=== PATIENT | female | born 1985 | race Caucasian/White ===

== ENCOUNTER 2020-06-12 03:42 | Outpatient (CLI) | payer MEDICAID, SELFPAY ==
[2020-06-12 15:41] LABS: Kit/Specimen SENT
[2020-06-12 16:00] LABS: Abs Immature Grans 0.04 k/cumm (0.0-0.09); Absolute Basophil Count 0.01 k/cumm (0.0-0.2); Absolute Eosinophil Count 0.09 k/cumm (0.0-0.7); Absolute Lymphocyte Count 1.83 k/cumm (1.2-3.4); Absolute Monocyte Count 0.51 k/cumm (0.11-0.7); Absolute Neutrophil Count 5.48 k/cumm (1.2-6.7); Basophils % 0.1; Eosinophils % 1.1; HCT 40.2 % (36.0-46.0); HGB 13.6 g/dL (12.0-15.5); Immature Grans % 0.5 %; Mean Corp. HGB Concentration 33.8 g/dL (32.0-36.0); Mean Corpuscular Hemoglobin 27.6 pg (27.0-33.0); Mean Corpuscular Volume 81.7 fL (80-95); Mean Platelet Volume 10.5 fL (8.0-11.0); Monocytes % 6.4; Neutrophils % 68.9; Platelet Count 275 x1000/uL (130-400); RBC 4.92 m/cumm (4.00-5.20); RBC Distribution Width 14.2 % (11.7-14.6); White Blood Cell Count 7.96 k/cumm (4.4-10.8)
[2020-06-12 16:02] LABS: Glucose,1 Hr (Glucola) 127 mg/dL (80-140)
[2020-06-12 16:33] LABS: TSH (W/Ref FT4) 1.29 uIU/mL (0.36-3.74)
[2020-06-13 09:49] LABS: Hepatitis B Surface Ag Negative (Negative)
[2020-06-13 10:23] LABS: HIV-1/2 Ag & Ab Screen Negative (Negative)
[2020-06-13 10:27] LABS: Hepatitis C Ab w Rflx HCV PCR Negative (Negative)
[2020-06-13 10:43] LABS: Rubella IgG Ab (UVM) Positive (See Note); Varicella IgG Antibody Positive (See Note)
[2020-06-14 10:14] LABS: Syphilis Total Ab w/Reflex Nonreactive (Nonreactive)
[2020-06-18 17:41] LABS: Result Summary NEGATIVE; Specimen WB Whole Blood
== END 2020-06-12 04:02 ==
PROVIDERS: Advanced Practice Midwife; Visit Provider Advanced Practice Midwife
DX: Z34.91 Encounter for supervision of normal pregnancy, unspecified, first trimester
CPT/HCPCS: 36415; 82950; 86787; 86803; 86850; 86900; 86901; 87340; 87389; 81220; 84443; 85025; 86762; 86780

== ENCOUNTER 2020-06-12 16:33 | Outpatient (REF) | payer MEDICAID, SELFPAY ==
[2020-06-12 19:58] LABS: *AMPHETAMINES SCREEN URINE Negative (Negative); *BARBITURATES SCREEN URINE Negative (Negative); *BENZODIAZEPINES SCREEN URINE Negative (Negative); Cannabinoids THC Negative (Negative); Cocaine Screen,Urine Negative (Negative); METHADONE URINE SCREEN Negative (Negative); OPIATES URINE SCREEN Negative (Negative)
[2020-06-12 20:21] LABS: Tricyclic Antidepressants Negative (Negative)
[2020-06-14 14:34] LABS: Chlamydia Result Negative (Negative); GC Result Negative (Negative)
[2020-06-19 14:16] LABS: Buprenorphine Negative; Norbuprenorphine Negative
== END 2020-06-12 16:53 ==
LOC: LBN 16:33
PROVIDERS: Visit Provider Advanced Practice Midwife
DX: Z34.91 Encounter for supervision of normal pregnancy, unspecified, first trimester; N89.8 Other specified noninflammatory disorders of vagina
CPT/HCPCS: 80307; 87491; 87591; 87086; 87480; 87510; 87660

== ENCOUNTER 2020-08-07 01:09 | Outpatient (CLI) | payer MEDICAID, SELFPAY ==
[2020-08-16 10:59] LABS: AFP 59.2 ng/mL; Cigarette smoking status non-Smoker; IVF Pregnancy No; Insulin dependent diabetes No; Maternal Weight 185 lbs; Number of Fetuses 1; Prev Pregnancy w/NTD No
[2020-08-16 11:17] LABS: Results Summary Normal risk
[2020-08-16 11:18] LABS: Calculated age at EDD 36 years; RECOMMENDED FOLLOW UP None.
[2020-08-16 11:19] LABS: GA used in risk estimate Dates estimate; Initial or repeat testing Initial testing
== END 2020-08-07 01:29 ==
PROVIDERS: Visit Provider Advanced Practice Midwife
DX: O09.522 Supervision of elderly multigravida, second trimester (principal)
CPT/HCPCS: 36415; 82105

== ENCOUNTER 2020-10-09 01:32 | Outpatient (CLI) | payer MEDICAID, SELFPAY ==
[2020-10-09 09:39] LABS: HCT 37.2 % (36.0-46.0); HGB 12.2 g/dL (11.2-15.7); MCH 27.9 pg (27.0-33.0); MCHC 32.8 % (32.0-36.0); MCV 84.9 fL (80-95); MPV 10.5 fL (8.0-11.0); Platelet Count 228 10^3/uL (130-400); RBC 4.38 10^6/uL (3.93-5.22); RDW 14.1 % (11.7-14.6); RDW-SD 43.7 fL; WBC 10.74 10^3/uL (4.4-10.8)
[2020-10-09 09:52] LABS: Glucose,1 Hr (Glucola) 101 mg/dL (80-140)
== END 2020-10-09 01:52 ==
PROVIDERS: Advanced Practice Midwife; Visit Provider Advanced Practice Midwife
DX: Z34.93 Encounter for supervision of normal pregnancy, unspecified, third trimester (principal)
CPT/HCPCS: 36415; 82950; 85027

== ENCOUNTER 2020-11-06 00:24 | Outpatient (CLI) | payer MEDICAID, SELFPAY ==
--- NOTE | 2020-11-06 07:30 | DI.US_ITS ---
EXAM: US OB KANWAL WEIGHT CLINICAL HISTORY: MATERNAL HYPERTENSION,ADVANCED MATERNAL AGE,O13.9. TECHNIQUE: Transabdominal obstetrical ultrasound performed. COMPARISON: No exams were available for comparison FINDINGS: Transabdominal obstetrical ultrasound performed. FINDINGS: Number of fetuses: One. position: Transverse. Head to the left. Placental location: Posterior and fundal. No evidence of previa. The bladder and kidneys were evaluated and are unremarkable. BIOMETRIC DATA: EFW: 2153 grms 62% Composite Age: 33 weeks 2 days EDC: 12/23/2020 Heart Rate: 135BPM Amniotic fluid index: 27.7 cm. Visually, amount of fluid appears within normal limits. IMPRESSION: 1. Single live intrauterine gestation as above. 2. Estimated weight is 2153gms. 3. Amniotic fluid index is 27.7 cm. DATA REPOSITORY:
== END 2020-11-06 00:44 ==
PROVIDERS: PCP Advanced Practice Midwife; Visit Provider Advanced Practice Midwife
DX: O13.3 Gestational [pregnancy-induced] hypertension without significant proteinuria, third trimester (principal)
CPT/HCPCS: 76816

== ENCOUNTER 2020-11-20 01:36 | Outpatient (CLI) | payer MEDICAID, SELFPAY ==
--- NOTE | 2020-11-20 07:15 | DI.US_ITS ---
EXAM: US OB KANWAL WEIGHT CLINICAL HISTORY: polyhydramnios,O40.9XX0. TECHNIQUE: Transabdominal obstetrical ultrasound performed. COMPARISON: US US OB KANWAL WEIGHT from 11/06/2020 FINDINGS:: Number of fetuses: One. position: Vertex. Placental location: Posterior. No evidence of previa. Cervix: Intact. 5.9 cm in length. BIOMETRIC DATA: BPD: 86mm = 34+4 weeks HC: 321mm = 36+ 1 weeks AC: 305mm = 34+3 weeks FL: 66 mm = 33+ 6 weeks EFW: 2434 Gms = 42 % Composite Age: 30 4+5 EDC: 27 December 2020 Heart Rate: 162 BPM Amniotic fluid index: 27.4 cm. Polyhydramnios not changed from the previous exam. There is mild prominence of the bilateral renal pelves. The urinary bladder is mildly d istended. IMPRESSION: size and weight are within the expected range. Mild bilateral prominence of the renal pelves,, likely within normal limits. Polyhydramnios, unchanged. DATA REPOSITORY:
== END 2020-11-20 01:56 ==
PROVIDERS: PCP Advanced Practice Midwife; Visit Provider Advanced Practice Midwife
DX: O40.3XX0 Polyhydramnios, third trimester, not applicable or unspecified (principal)
CPT/HCPCS: 76816

== ENCOUNTER 2020-11-20 07:48 | Outpatient (CLI) | payer MEDICAID, SELFPAY ==
[2020-11-20 10:33] VITALS: BP 93/52; PULSE 88; TEMP 37.1
[2020-11-20 11:37] VITALS: BP 93/52; PULSE 88
== END 2020-11-20 12:03 ==
LOC: BCD 07:51 → OBS 10:32
PROVIDERS: PCP Advanced Practice Midwife; Visit Provider Advanced Practice Midwife
DX: O40.3XX9 Polyhydramnios, third trimester, other fetus (principal); Z3A.34 34 weeks gestation of pregnancy
CPT/HCPCS: 59025

== ENCOUNTER 2020-11-23 11:29 | Outpatient (CLI) | payer MEDICAID, SELFPAY ==
[2020-11-23 11:53] VITALS: BP 119/60; PULSE 93; TEMP 36.9
--- NOTE | 2020-11-28 09:41 | W.OBNST ---
Date of service: 11/23/20 Time of Service: 18:00 NST Evaluation Reason for NST Reasons for Nonstress Test: POLYHYDRAMNIOS Gestational Age Gestational Age in Weeks and Days: 35 Weeks and 4Days Test and Monitor Explained Test/Monitor Explained: Test Explained, Monitor Explained and Patient Verbalized Understanding Vital Signs Blood Pressure: 119/60 Pulse: 93 Temperature: 98.4 F NST Information Date on Monitor: 11/23/20 Time on Monitor: 11:16 Date off Monitor: 11/23/20 Time off Monitor: 11:58 Total Time on Monitor: 42 NST Interventions: PO Hydration NST Evaluation Patient States Movement: Present FHR Baseline: 140 Variability: Moderate 6-25 bpm Accelerations: 15x15 Decelerations: None NST Results: Reactive Note NST Note Note: NST for polyhydramnios. Reactive NST NST Reviewed and Verified by: Kirstin Gale
[2020-11-28 09:42] VITALS: BP 119/60; PULSE 93; TEMP 36.9
== END 2020-11-23 12:08 | disposition home or self-care (01) ==
LOC: BCD 11:30 → OBS 11:50
PROVIDERS: PCP Advanced Practice Midwife; Visit Provider Advanced Practice Midwife
DX: O40.3XX0 Polyhydramnios, third trimester, not applicable or unspecified (principal); Z3A.35 35 weeks gestation of pregnancy
CPT/HCPCS: 59025

== ENCOUNTER 2020-11-27 08:10 | Outpatient (CLI) | payer MEDICAID, SELFPAY ==
[2020-11-27 13:46] VITALS: BP 137/66; PULSE 107; TEMP 37
[2020-11-27 13:48] VITALS: BP 137/66; PULSE 107
--- NOTE | 2020-11-27 14:18 | W.OBNST ---
Date of service: 11/27/20 Time of Service: 14:18 NST Evaluation Reason for NST Reasons for Nonstress Test: POLYHYDRAMNIOS Gestational Age Gestational Age in Weeks and Days: 35 Weeks and 4Days Test and Monitor Explained Test/Monitor Explained: Test Explained, Monitor Explained and Patient Verbalized Understanding Vital Signs Blood Pressure: 137/66 Pulse: 107 Temperature: 98.6 F NST Information Date on Monitor: 11/27/20 Time on Monitor: 13:47 Date off Monitor: 11/27/20 Time off Monitor: 14:16 Total Time on Monitor: 29 NST Interventions: PO Hydration NST Evaluation Patient States Movement: Present FHR Baseline: 145 Variability: Moderate 6-25 bpm Accelerations: 15x15 Decelerations: None NST Results: Reactive Note NST Note Note: NST today for polyhydramnios. NST 2 x weekly have been scheduled with visit 12/03/19 NST Reviewed and Verified by: Kirstin Gale
[2020-11-27 14:19] VITALS: BP 137/66; PULSE 107; TEMP 37
[2020-12-03 11:02] VITALS: BP 117/78; PULSE 93
== END 2020-11-27 14:20 | disposition home or self-care (01) ==
LOC: BCD 08:21 → OBS 13:41
PROVIDERS: PCP Advanced Practice Midwife; Visit Provider Advanced Practice Midwife
DX: O40.3XX0 Polyhydramnios, third trimester, not applicable or unspecified (principal); Z3A.35 35 weeks gestation of pregnancy
CPT/HCPCS: 59025

== ENCOUNTER 2020-11-30 07:02 | Outpatient (CLI) | payer MEDICAID, SELFPAY ==
[2020-11-30 10:45] VITALS: BP 114/82; PULSE 91; TEMP 36.9
[2020-11-30 11:04] VITALS: BP 114/82; PULSE 91
--- NOTE | 2020-11-30 11:32 | W.OBNST ---
Date of service: 11/30/20 Time of Service: 11:32 NST Evaluation Reason for NST Reasons for Nonstress Test: POLYHYDRAMNIOS Gestational Age Gestational Age in Weeks and Days: 36 Weeks and 0Days Test and Monitor Explained Test/Monitor Explained: Test Explained, Monitor Explained and Patient Verbalized Understanding Vital Signs Blood Pressure: 114/82 Pulse: 91 Temperature: 98.4 F NST Information Date on Monitor: 11/30/20 Time on Monitor: 10:48 Date off Monitor: 11/30/20 Time off Monitor: 11:24 Total Time on Monitor: 36 NST Interventions: PO Hydration NST Evaluation Patient States Movement: Present FHR Baseline: 150 Variability: Moderate 6-25 bpm Accelerations: 15x15 Decelerations: None NST Results: Reactive Note NST Note Note: NST for polyhydramnios. RTO in 3 days for visit and NST NST Reviewed and Verified by: Kirstin Gale
[2020-11-30 11:33] VITALS: BP 114/82; PULSE 91; TEMP 36.9
== END 2020-11-30 11:26 | disposition home or self-care (01) ==
LOC: BCD 07:11 → OBS 10:43
PROVIDERS: PCP Family Medicine; Visit Provider Advanced Practice Midwife
DX: O40.3XX0 Polyhydramnios, third trimester, not applicable or unspecified (principal); Z3A.36 36 weeks gestation of pregnancy
CPT/HCPCS: 59025

== ENCOUNTER 2020-12-03 01:29 | Outpatient (CLI) | payer MEDICAID, SELFPAY ==
--- NOTE | 2020-12-03 07:45 | DI.US_ITS ---
EXAM: US OB KANWAL WEIGHT CLINICAL HISTORY: polyhydramnios,O40.9xx0 to [facility] after. TECHNIQUE: Transabdominal obstetrical ultrasound was performed. COMPARISON: US US OB KANWAL WEIGHT from 11/20/2020 FINDINGS: There is a single viable intrauterine gestation with cardiac activity identified-149 bpm The fetus is presently in cephalic position . Amniotic fluid: There is a slightly increased amount of amniotic fluid with an KANWAL of 24.5cm. Placental location: The placenta is fundal-right, grade 2,with no evidence of placenta previa. Dating parameters place this at approximately 36 weeks and 3 days gestational age, implying ELIO of December 28, 2020. BPD measures 36 weeks and 3 days HC measures 36 weeks and 1 day AC measures 36 weeks and 6 days FL measures 36 weeks 0 days Estimated weight is 2948 gm-6 pounds 8 ounces Fetus is at the 89th percentile on the Hadlock scale. IMPRESSION:: Viable 3rd trimester gestation as above. Presently in cephalic position. Polyhydramnios noted (KANWAL = 24.5 cm) DATA REPOSITORY:
== END 2020-12-03 01:49 ==
PROVIDERS: PCP Family Medicine; Visit Provider Advanced Practice Midwife
DX: O40.3XX0 Polyhydramnios, third trimester, not applicable or unspecified (principal); Z3A.36 36 weeks gestation of pregnancy
CPT/HCPCS: 76816

== ENCOUNTER 2020-12-03 07:02 | Outpatient (CLI) | payer MEDICAID, SELFPAY ==
[2020-12-03 10:43] VITALS: BP 117/78; PULSE 93; TEMP 37
--- NOTE | 2020-12-03 11:25 | PDOC.NST_ITS ---
Date of service: 12/03/20 Time of Service: 11:25 NST Evaluation Reason for NST Reasons for Nonstress Test: POLYHYDRAMNIOS Gestational Age Gestational Age in Weeks and Days: 36 Weeks and 3Days Test and Monitor Explained Test/Monitor Explained: Test Explained, Monitor Explained and Patient Verbalized Understanding Vital Signs Blood Pressure: 117/78 Pulse: 93 Temperature: 98.6 F NST Information Date on Monitor: 12/03/20 Time on Monitor: 10:47 Date off Monitor: 12/03/20 Time off Monitor: 11:07 Total Time on Monitor: 20 NST Interventions: PO Hydration NST Evaluation Patient States Movement: Present Variability: Moderate 6-25 bpm Accelerations: 15x15 Decelerations: None NST Results: Reactive Note NST Note Note: to [facility] for 36 wk check up, labs, and review ultrasound results from the DI NST Reviewed and Verified by: Stefanie Tovar
[2020-12-03 11:26] VITALS: BP 117/78; PULSE 93; TEMP 37
== END 2020-12-03 11:09 | disposition home or self-care (01) ==
LOC: BCD 07:23 → OBS 10:09
PROVIDERS: PCP Family Medicine; Visit Provider Advanced Practice Midwife
DX: O40.3XX0 Polyhydramnios, third trimester, not applicable or unspecified (principal); Z3A.36 36 weeks gestation of pregnancy
CPT/HCPCS: 59025

== ENCOUNTER 2020-12-03 18:20 | Outpatient (REF) | payer MEDICAID, SELFPAY ==
[2020-12-03 17:31] LABS: *AMPHETAMINES SCREEN URINE Negative (Negative); *BARBITURATES SCREEN URINE Negative (Negative); *BENZODIAZEPINES SCREEN URINE Negative (Negative); Cannabinoids THC Negative (Negative); Cocaine Screen,Urine Negative (Negative); METHADONE URINE SCREEN Negative (Negative); OPIATES URINE SCREEN Negative (Negative)
[2020-12-03 17:32] LABS: Tricyclic Antidepressants Negative (Negative)
[2020-12-11 11:59] LABS: Buprenorphine Negative; Norbuprenorphine Negative
== END 2020-12-03 18:40 ==
LOC: LBN 18:20
PROVIDERS: PCP Family Medicine; Visit Provider Advanced Practice Midwife
DX: Z34.93 Encounter for supervision of normal pregnancy, unspecified, third trimester (principal); Z3A.36 36 weeks gestation of pregnancy
CPT/HCPCS: 80307; 87081

== ENCOUNTER 2020-12-07 07:59 | Outpatient (CLI) | payer MEDICAID, SELFPAY ==
[2020-12-07 10:53] VITALS: BP 136/71; PULSE 90; TEMP 37.2
[2020-12-07 11:12] VITALS: BP 136/71; PULSE 90
--- NOTE | 2020-12-07 13:35 | W.OBNST ---
Date of service: 12/07/20 Time of Service: 12:35 NST Evaluation Reason for NST Reasons for Nonstress Test: POLYHYDRAMNIOS Gestational Age Gestational Age in Weeks and Days: 37 Weeks and 0Days Vital Signs Blood Pressure: 136/71 Pulse: 90 Temperature: 99.0 F NST Information Date on Monitor: 12/07/20 Time on Monitor: 10:57 Date off Monitor: 12/07/20 Time off Monitor: 11:30 Total Time on Monitor: 33 NST Interventions: PO Hydration NST Evaluation Patient States Movement: Present FHR Baseline: 150 Variability: Moderate 6-25 bpm Accelerations: 15x15 Decelerations: None NST Results: Reactive Note NST Note NST Reviewed and Verified by: Stefanie Tovar
[2020-12-07 13:36] VITALS: BP 136/71; PULSE 90; TEMP 37.2
== END 2020-12-07 11:31 | disposition home or self-care (01) ==
LOC: BCD 08:03 → NUR 10:49 → OBS 11:10
PROVIDERS: PCP Family Medicine; Visit Provider Advanced Practice Midwife
DX: O40.3XX0 Polyhydramnios, third trimester, not applicable or unspecified (principal); Z3A.37 37 weeks gestation of pregnancy
CPT/HCPCS: 59025

== ENCOUNTER 2020-12-11 07:11 | Outpatient (CLI) | payer MEDICAID, SELFPAY ==
[2020-12-11 09:21] VITALS: BP 111/68; PULSE 105; RESP 16; TEMP 36.9
[2020-12-11 09:22] VITALS: BP 111/68; PULSE 105; TEMP 36.9
[2020-12-11 09:49] VITALS: BP 111/68; PULSE 105; TEMP 36.9
--- NOTE | 2020-12-11 09:49 | W.OBNST ---
Date of service: 12/11/20 Time of Service: 09:49 NST Evaluation Reason for NST Reasons for Nonstress Test: POLYHYDRAMNIOS Gestational Age Gestational Age in Weeks and Days: 37 Weeks and 4Days Test and Monitor Explained Test/Monitor Explained: Patient Verbalized Understanding Vital Signs Blood Pressure: 111/68 Pulse: 105 Temperature: 98.4 F NST Information Date on Monitor: 12/11/20 Time on Monitor: 09:20 Date off Monitor: 12/11/20 Time off Monitor: 09:40 Total Time on Monitor: 20 NST Interventions: PO Hydration Contraction Frequency: 0 NST Evaluation Patient States Movement: Present FHR Baseline: 150 Variability: Moderate 6-25 bpm Accelerations: 15x15 Decelerations: None NST Results: Reactive Note NST Note Note: Reactive NST for polyhydramnios NST Reviewed and Verified by: Kirstin Gale
== END 2020-12-11 10:01 | disposition home or self-care (01) ==
LOC: BCD 07:22 → OBS 08:36
PROVIDERS: PCP Family Medicine; Visit Provider Advanced Practice Midwife
DX: O40.3XX0 Polyhydramnios, third trimester, not applicable or unspecified (principal); Z3A.37 37 weeks gestation of pregnancy
CPT/HCPCS: 59025

== ENCOUNTER 2020-12-14 07:17 | Outpatient (CLI) | payer MEDICAID, SELFPAY ==
[2020-12-14 08:57] VITALS: BP 115/73; PULSE 92; TEMP 37
[2020-12-14 09:17] VITALS: BP 115/73; PULSE 92
--- NOTE | 2020-12-14 09:54 | W.OBNST ---
Date of service: 12/14/20 Time of Service: 09:54 NST Evaluation Reason for NST Reasons for Nonstress Test: POLYHYDRAMNIOS Gestational Age Gestational Age in Weeks and Days: 38 Weeks and 0Days Test and Monitor Explained Test/Monitor Explained: Test Explained, Monitor Explained and Patient Verbalized Understanding Vital Signs Blood Pressure: 115/73 Pulse: 92 Temperature: 98.6 F NST Information Date on Monitor: 12/14/20 Time on Monitor: 09:00 Date off Monitor: 12/14/20 Time off Monitor: 09:24 Total Time on Monitor: 24 NST Interventions: PO Hydration NST Evaluation Patient States Movement: Present FHR Baseline: 140 Variability: Moderate 6-25 bpm Accelerations: 15x15 Decelerations: None NST Results: Reactive Note NST Note NST Reviewed and Verified by: Stefanie Tovar
[2020-12-14 09:55] VITALS: BP 115/73; PULSE 92; TEMP 37
== END 2020-12-14 09:25 | disposition home or self-care (01) ==
LOC: BCD 07:20 → OBS 08:55
PROVIDERS: PCP Family Medicine; Visit Provider Advanced Practice Midwife
DX: O40.3XX0 Polyhydramnios, third trimester, not applicable or unspecified (principal); Z3A.38 38 weeks gestation of pregnancy
CPT/HCPCS: 59025

== ENCOUNTER 2020-12-18 06:59 | Outpatient (CLI) | payer MEDICAID, SELFPAY ==
[2020-12-18 09:01] VITALS: BP 125/59; PULSE 93; TEMP 37.1
[2020-12-18 09:20] VITALS: BP 125/59; PULSE 93
--- NOTE | 2020-12-18 10:34 | W.OBNST ---
Date of service: 12/18/20 Time of Service: 10:34 NST Evaluation Reason for NST Reasons for Nonstress Test: POLYHYDRAMNIOS Gestational Age Gestational Age in Weeks and Days: 38 Weeks and 4Days Test and Monitor Explained Test/Monitor Explained: Test Explained, Monitor Explained and Patient Verbalized Understanding Vital Signs Blood Pressure: 125/59 Pulse: 93 Temperature: 98.8 F NST Information Date on Monitor: 12/18/20 Time on Monitor: 09:04 Date off Monitor: 12/18/20 Time off Monitor: 09:35 Total Time on Monitor: 31 NST Interventions: PO Hydration and Reposition Patient NST Evaluation Patient States Movement: Present FHR Baseline: 145 Variability: Moderate 6-25 bpm Accelerations: 15x15 Decelerations: None NST Results: Reactive Note NST Note NST Reviewed and Verified by: Stefanie Tovar
[2020-12-18 10:35] VITALS: BP 125/59; PULSE 93; TEMP 37.1
== END 2020-12-18 09:38 ==
LOC: BCD 07:28 → OBS 08:59
PROVIDERS: PCP Family Medicine; Visit Provider Advanced Practice Midwife
DX: O40.3XX0 Polyhydramnios, third trimester, not applicable or unspecified (principal); Z3A.38 38 weeks gestation of pregnancy
CPT/HCPCS: 59025

== ENCOUNTER 2020-12-21 07:46 | Outpatient (CLI) | payer MEDICAID, SELFPAY ==
[2020-12-21 09:06] VITALS: BP 125/72; PULSE 92; TEMP 36.9
[2020-12-21 09:43] VITALS: BP 125/72; PULSE 92
--- NOTE | 2020-12-21 10:38 | W.OBNST ---
Date of service: 12/21/20 Time of Service: 10:39 NST Evaluation Reason for NST Reasons for Nonstress Test: POLYHYDRAMNIOS Gestational Age Gestational Age in Weeks and Days: 39 Weeks and 0Days Test and Monitor Explained Test/Monitor Explained: Test Explained, Monitor Explained and Patient Verbalized Understanding Vital Signs Blood Pressure: 125/72 Pulse: 92 Temperature: 98.4 F NST Information Date on Monitor: 12/21/20 Time on Monitor: 09:07 Date off Monitor: 12/21/20 Time off Monitor: 09:42 Total Time on Monitor: 35 NST Interventions: PO Hydration NST Evaluation Patient States Movement: Present Variability: Moderate 6-25 bpm Accelerations: 15x15 Decelerations: None NST Results: Reactive Note NST Note NST Reviewed and Verified by: Stefanie Tovar
[2020-12-21 10:39] VITALS: BP 125/72; PULSE 92; TEMP 36.9
== END 2020-12-21 09:44 | disposition home or self-care (01) ==
LOC: BCD 07:53 → OBS 08:32
PROVIDERS: PCP Family Medicine; Visit Provider Advanced Practice Midwife
DX: O40.3XX0 Polyhydramnios, third trimester, not applicable or unspecified (principal); Z3A.39 39 weeks gestation of pregnancy
CPT/HCPCS: 59025

== ENCOUNTER 2020-12-25 01:22 | Outpatient (CLI) | payer MEDICAID, SELFPAY ==
--- NOTE | 2020-12-25 07:45 | DI.US_ITS ---
EXAM: US OB KANWAL WEIGHT CLINICAL HISTORY: polyhydramnios,o40.9XXO. TECHNIQUE: Transabdominal obstetrical ultrasound performed. COMPARISON: US US OB KANWAL WEIGHT from 12/03/2020 FINDINGS: Transabdominal obstetrical ultrasound performed. FINDINGS: Number of fetuses: One. position: Cephalic. Placental location: Posterior and fundal. No evidence of previa. BIOMETRIC DATA: EFW: 3612 grms 56% Composite Age: 38 weeks 6 days EDC: 01/02/2021 Heart Rate: 155BPM Amniotic fluid index: 22.5 cm. Findings consistent with polyhydramnios. IMPRESSION: 1. Single live intrauterine gestation as above. 2. Estimated weight is 3612gms. 3. Amniotic fluid index is 22.5 cm. Findings consistent with polyhydramnios. DATA REPOSITORY:
== END 2020-12-25 01:23 | disposition home or self-care (01) ==
LOC: DI 01:23
PROVIDERS: PCP Family Medicine; Visit Provider Advanced Practice Midwife
DX: O40.3XX0 Polyhydramnios, third trimester, not applicable or unspecified (principal)
CPT/HCPCS: 76816

== ENCOUNTER 2020-12-25 10:23 | Outpatient (CLI) | payer MEDICAID, SELFPAY ==
[2020-12-25 12:55] VITALS: BP 133/75; PULSE 90; TEMP 37.2
[2020-12-25 13:14] VITALS: BP 133/75; PULSE 90
--- NOTE | 2020-12-25 13:24 | W.OBNST ---
Date of service: 12/25/20 Time of Service: 13:15 NST Evaluation Reason for NST Reasons for Nonstress Test: GESTATIONAL HYPERTENSION, ADVANCED MATERNAL AGE and POLYHYDRAMNIOS Gestational Age Gestational Age in Weeks and Days: 39 Weeks and 0Days NST Evaluation Patient States Movement: Present FHR Baseline: 130 Variability: Moderate 6-25 bpm Accelerations: 15x15 Decelerations: None NST Results: Reactive NST Results Other: Audi Miller CNM Note NST Note NST Reviewed and Verified by: Kirstin Miller
[2020-12-25 13:53] VITALS: BP 133/75; PULSE 90; TEMP 37.2
--- NOTE | 2020-12-25 13:53 | W.OBNST ---
Date of service: 12/25/20 Time of Service: 13:15 NST Evaluation Reason for NST Reasons for Nonstress Test: GESTATIONAL HYPERTENSION, ADVANCED MATERNAL AGE and POLYHYDRAMNIOS Gestational Age Gestational Age in Weeks and Days: 39 Weeks and 0Days Test and Monitor Explained Test/Monitor Explained: Test Explained, Monitor Explained and Patient Verbalized Understanding Vital Signs Blood Pressure: 133/75 Pulse: 90 Temperature: 99.0 F NST Information Date on Monitor: 12/25/20 Time on Monitor: 12:50 Date off Monitor: 12/25/20 Time off Monitor: 13:20 Total Time on Monitor: 30 NST Interventions: PO Hydration NST Evaluation Patient States Movement: Present FHR Baseline: 130 Variability: Moderate 6-25 bpm Accelerations: 15x15 Decelerations: None NST Results: Reactive NST Results Other: Audi Miller CNM Note NST Note NST Reviewed and Verified by: Kirstin Miller
== END 2020-12-25 13:29 | disposition home or self-care (01) ==
LOC: BCD 10:31 → OBS 12:50
PROVIDERS: PCP Family Medicine; Visit Provider Advanced Practice Midwife
DX: O13.3 Gestational [pregnancy-induced] hypertension without significant proteinuria, third trimester (principal); O09.523 Supervision of elderly multigravida, third trimester; O40.3XX0 Polyhydramnios, third trimester, not applicable or unspecified; Z3A.39 39 weeks gestation of pregnancy
CPT/HCPCS: 59025

== ENCOUNTER 2020-12-28 07:55 | Outpatient (CLI) | payer MEDICAID, SELFPAY ==
[2020-12-28 08:21] VITALS: BP 138/87; PULSE 94; TEMP 36.9
[2020-12-28 08:24] VITALS: BP 138/87; PULSE 94
[2020-12-28 08:38] VITALS: BP 138/87; PULSE 94; TEMP 36.9
[2020-12-28 09:16] VITALS: BP 138/87; PULSE 94; TEMP 36.9
--- NOTE | 2020-12-28 09:23 | W.OBNST ---
Date of service: 12/28/20 Time of Service: 09:23 NST Evaluation Reason for NST Reasons for Nonstress Test: OLIGOHYDRAMNIOS Gestational Age Gestational Age in Weeks and Days: 40 Weeks and 0Days Test and Monitor Explained Test/Monitor Explained: Test Explained, Monitor Explained and Patient Verbalized Understanding Vital Signs Blood Pressure: 138/87 Pulse: 94 Temperature: 98.4 F NST Information Date on Monitor: 12/28/20 Time on Monitor: 08:20 Date off Monitor: 12/28/20 Time off Monitor: 09:17 Total Time on Monitor: 57 NST Interventions: PO Hydration NST Evaluation Patient States Movement: Present FHR Baseline: 135 Variability: Moderate 6-25 bpm Accelerations: 10x10 Decelerations: None NST Results: Reactive Note NST Note Note: Reactive NST. 40w0d now. Will come in Thursday12/31/20 at 10 am for IOL for polyhydramnios and gestational hypertension as well as being 40w3d. NST Reviewed and Verified by: Kirstin Miller
[2020-12-28 09:25] VITALS: BP 138/87; PULSE 94; TEMP 36.9
== END 2020-12-28 09:24 | disposition home or self-care (01) ==
LOC: BCD 07:58 → OBS 08:13
PROVIDERS: PCP Family Medicine; Visit Provider Advanced Practice Midwife
DX: O40.3XX0 Polyhydramnios, third trimester, not applicable or unspecified (principal); Z3A.40 40 weeks gestation of pregnancy
CPT/HCPCS: 59025

== ENCOUNTER 2020-12-31 09:51 | Inpatient (IN) | payer MEDICAID, SELFPAY ==
[2020-12-31] VITALS (19 sets, daily range): BP systolic 103–144; BP diastolic 55–89; PULSE 67–111; RESP 18–20; TEMP 36.7–37.2; O2SAT 97–100
--- NOTE | 2020-12-31 10:37 | HPE_ITS ---
Date of service: 12/31/20 Time of Service: 10:38 Assessment and Plan Assessment and plan (1) Polyhydramnios affecting : Status: Acute (2) Gestational hypertension: Status: Acute (3) Encounter for induction of labor: Start date: 12/31/20 Start time: 10:53 Status: Acute Assessment and plan: 12/31/20 admitted for induction of labor due to polyhydramnios and gestational hypertension. Patient is feeling well. Denies questions or concerns. mortgage or loan underwriter has reviewed cervical ripening and PPH risks due to polyhydramnios (however last KANWAL WNL 22.5 KANWAL) and cervical ripening / induction as well as potential managment of PPH. patient agrees to these measures if indicated. COVID test ordered. Expect NVD.KH OB-HPI Labor/Delivery History of Present Illness Reason for Visit: induction Chief Complaint: Scheduled Induction of Labor Indication for Induction: Polyhydramnios and Other (40w3d). ELIO Calculator Estimated Delivery Date Method Current WG Current Estimate 12/28/20 LMP (Certain) 40w 3d Other Estimates 01/02/21 Ultrasound #1 39w 5d History of Present Expected Delivery Route/Plan - CNM FOB/ - Wilder Fragoso (his fourth with [facility]) BB yes to circ GBS neg Would like to use tub, epidural in the past. Thinking of avoiding epidural this time. Specific Issues/Plan 1. BMI 35 - early GTT - 127 2. A.M.A. - genetic testing options discussed - [place] and CF testing drawn 06/12 2a. [place] result low prob x3, male 2b. CF carrier status negative 2c. AFP single marker drawn 08/07, low risk for NTD 3. ASA recommendation due to A.M.A. and BMI > 30, started @ 12 wks 4. Pt requests level 2 sono w[place] [facility] [place], 4a. Level 2 sono nml with right urinary tract dilation (UTD), 4b. MFM rec's repeat sono at 32 wks @ [facility], plan post-delivery eval if UTD >7mm 4c. Kidneys appear WNL - KANWAL 27.7 - MD consult and repeat sono 27.7. 12/03/20 24.5/89%/cephalic. al 5. Started 120 mg (low dose) ASA daily at 23 wks for intermittent borderline BP readings, AMA and family hx HTN 6. Polyhydramnios - twice weekly testing 11/20.-27.4 repeat 12/03 -24.5. Repeat US 12/25/20 KANWAL 22.5cm EFW 3612 will discuss IOL at T on 12/28/20. Assessment: History Reviewed & Current Informed Consent Informed Consent: Induction of Labor Review of Systems All systems reviewed & are unremarkable except as noted in HPI and below PFSH Family History (Updated 06/12/20 @ 14:32 by Kirstin Gale CNM) Mother Diabetes Social History (Updated 06/12/20 @ 16:25 by Kirstin Gale CNM) Smoking/Tobacco Use Status: Never Smoking risk assessment performed?: Yes Alcohol Intake: never Details: denoes alcohol use Substance use type: does not use Current gender identity: female History History 4 Para 3 Hx # Term Pregnancies 3 Multiple births 0 Hx # Pregnancies 0 Ectopic pregnancies 0 AB induced 0 Hx Number of Living Children 3 AB spontaneous 0 Past Pregnancies Del. Date GA/Weeks # Outcome Route Wgt Sex Labor Lgth Anesthes ia Location Prov [facility] 05/22/06 40 No Successful vaginal 6 lb [address] [facility], 03/29/09 39 No Successful vaginal 7 lb 13 oz Male [address] [place] [address] 12/28/12 40 No Successful vaginal 6 lb 4 oz Female 5-6 [facility] Delivery Date: 05/22/06 vacuum, nuchal cord, long second stage, resuscitation, healthy, Uriah Kirstin Gale Delivery Date: 03/29/09 June , IOL for nearterm Kirstin Gale Delivery Date: 12/28/12 IOL, post dates, Kirstin Torres Meds Home Medications and Allergies Home Medications Medication Instructions Recorded Confirmed Type Proventil 2 puff INHALATION PRN 08/16/08 12/11/20 History prenat.vits,mercedes,[id number] 1 tab PO DAILY 06/12/20 12/11/20 History aspirin 81 mg tablet,delayed 120 mg PO DAILY #90 tab 09/04/20 12/11/20 Rx release Allergies Allergy/AdvReac Type Severity Reaction Status Date / Time No Known Allergies Allergy Unverified 12/18/20 09:47 Exam Physical Exam Vital signs: Pulse BP 111 H 144/89 H 12/31/20 10:37 12/31/20 10:37 Vital Signs Reviewed: Yes Notable Details: BP mildly elevated, no complaints of preeclampsia signs.KH Constitutional Constitutional: no acute distress and cooperative Detailed Labor and Delivery Exam Dilation: 0 Effacement (%): 40 station: -4 Cervix position: posterior Consistency: soft Huntley Score: Cervical Points Exam 0 1 2 3 Dilation Closed 1-2cm 3-4 cm 5-6cm Effacement 0-30% 40-50% 60-70% 80% Consistency Firm Medium Soft Station -3 -2 -1,0 +1,+2 Position Posterior Mid Anterior Amniotic Membrane Status: Intact Comments: patient is not aware of contractions, none noted.KH Fetus A Heart Rate Baseline: 140 Monitor Accelerations: 15 X 15 Monitor Decelerations: None Variability: Moderate (6-25 BPM) Presentation: Cephalic Categories: Category I Est. Weight: 7 lb 8 oz HEENT Exam HEENT Exam: Normal Neck Exam Neck Exam: Not Done Respiratory Exam Respiratory Exam: Normal Cardiovascular Exam Cardiovascular Exam: Normal Exam Exam: Normal Extremities Exam Extremities Exam: Normal Back/Spine/Pelvis Exam Pelvis Adequate: Yes Skin Exam Skin Exam: Normal Neurological Exam Neurological Exam: Normal Psychiatric Exam Psychiatric Exam: Normal Results Results Group Beta Strep: Negative Blood Type: O+ Rubella Status: Immune Varicella Immunity: Immune Risk Assessment Risk for Shoulder Dystocia Historical/Initial OB: POSITIVE FOR: Pre- BMI>30; NEGATIVE FOR: Pelvic Abnormality, Previous Shoulder Dystocia or Previous Macrosomia Increased Risk?: No Risk for Pre-Eclampsia Daily Dose ASA Indicated: Yes Date Initiated/Initials: started low dose ASA @ 12 wks, Yes, if one or more: NEGATIVE FOR: Hx Pre-E/Gest HTN, Chronic HTN, Multiple Gestation, Pre-gestational DM, Renal Disease, Systemic Lupus or APA Syndrome Yes, if 2 or more: POSITIVE FOR: Age>= 35 yrs and BMI>30; NEGATIVE FOR: Nulliparity, >10yr btwn pregnancies, ethinicty, Mother/Sister w/ Pre-E or Previous IUGR Risk for Post- Hemorrhage Initial: NEGATIVE FOR: Multiple Gestation, Previous PPH, Known Clotting D eficiency, Grand Multiparity or Anticoagulation At Risk?: No Risks Reviewed Risks Reviewed Upon Admission: Yes
[2020-12-31] MEDS: miSOPROStol 25 MCG TAB PO (11:17)
[2020-12-31 11:39] LABS: HCT 32.2 % (36.0-46.0); HGB 10.4 g/dL (11.2-15.7); MCH 26.2 pg (27.0-33.0); MCHC 32.3 % (32.0-36.0); MCV 81.1 fL (80-95); MPV 10.8 fL (8.0-11.0); Platelet Count 234 10^3/uL (130-400); RBC 3.97 10^6/uL (3.93-5.22); RDW 15.3 % (11.7-14.6); RDW-SD 44.5 fL; WBC 9.39 10^3/uL (4.4-10.8)
--- NOTE | 2020-12-31 15:31 | W.PM.OBNL1 ---
Date of service: 12/31/20 Time of Service: 15:32 Informed Consent Informed Consent: Induction of Labor Pelvic Exam Dilation: 1.5 Effacement (%): 50 station: -3 Cervix Position: posterior Consistency: soft Vaginal Exam Presentation: Cephalic Contractions Monitor Mode: Palpation Contraction Frequency(min): 4 in 10 Intensity: Mild Fetus A Monitor: External (US) Heart Rate Baseline: 150 Presentation: Cephalic Variability: Moderate (6-25 BPM) Categories: Category I Accelerations: 15 X 15 Decelerations: None Amniotic Membrane Status: Intact Assessment and Plan Assessment and plan (1) Encounter for induction of labor: Status: Acute Assessment and plan: will give 25 mcg of cytotec SL to encourage further cervical ripening. KH Objective Abnormal lab results 12/31/20 Range/Units 11:15 Hgb 10.4 L (11.2-15.7) g/dL Hct 32.2 L (36.0-46.0) % MCH 26.2 L (27.0-33.0) pg RDW 15.3 H (11.7-14.6) % Temp Pulse Resp BP Pulse Ox 98.4 F 102 H 20 144/65 H 98 12/31/20 10:38 12/31/20 13:22 12/31/20 10:38 12/31/20 13:22 12/31/20 10:38 Laboratory Results WBC 9.39 10^3/uL (4.4-10.8) 12/31/20 11:15 RBC 3.97 10^6/uL (3.93-5.22) 12/31/20 11:15 Hgb 10.4 g/dL (11.2-15.7) L 12/31/20 11:15 Hct 32.2 % (36.0-46.0) L 12/31/20 11:15 MCV 81.1 fL (80-95) 12/31/20 11:15 MCH 26.2 pg (27.0-33.0) L 12/31/20 11:15 MCHC 32.3 % (32.0-36.0) 12/31/20 11:15 RDW 15.3 % (11.7-14.6) H 12/31/20 11:15 Plt Count 234 10^3/uL (130-400) 12/31/20 11:15 MPV 10.8 fL (8.0-11.0) 12/31/20 11:15 Patient ABO/Rh O Positive 12/31/20 11:15 Antibody Screen Negative 12/31/20 11:15 Vital Signs Reviewed: Yes Subjective Interval history since last seen: Feeling some contractions, was stronger before the last hour. Denies LOF or vaginal bleeding. KH Results Hemoglobin/Hematocrit: Hgb 10.4 g/dL (11.2-15.7) L 12/31/20 11:15 Hct 32.2 % (36.0-46.0) L 12/31/20 11:15 Abnormal Lab Findings: Abnormal Labs 12/31/20 11:15 Hgb 10.4 L Hct 32.2 L MCH 26.2 L RDW 15.3 H
[2020-12-31] MEDS: miSOPROStol 25 MCG TAB SL (15:45)
--- NOTE | 2020-12-31 19:41 | W.PM.OBNL1 ---
Date of service: 12/31/20 Time of Service: 19:41 Informed Consent Informed Consent: Induction of Labor Contractions Monitor Mode: External Contraction Frequency(min): 2 in 10 min Contraction Duration(sec): 60-90 sec Intensity: Mild/Moderate Fetus A Monitor: External (US) Heart Rate Baseline: 145 Presentation: Cephalic Variability: Moderate (6-25 BPM) Categories: Category I Accelerations: 15 X 15 Decelerations: None Amniotic Membrane Status: Ruptured Rupture Method: Spontaneous Amniotic Fluid: Clear Amount: gush Date of Membrane Rupture: 12/31/20 Time of Membrane Rupture: 19:30 Assessment and Plan Assessment and plan (1) Encounter for induction of labor: Start date: 12/31/20 Status: Acute Assessment and plan: 194: SROM at 1930 clear, large gush. Will continue present management, is due for additional cervical ripening agent but will wait for at least 30 minutes since SROM to assess labor pattern. Anesthesia notified that patient may want epidural as evening progresses. Objective Abnormal lab results 12/31/20 Range/Units 11:15 Hgb 10.4 L (11.2-15.7) g/dL Hct 32.2 L (36.0-46.0) % MCH 26.2 L (27.0-33.0) pg RDW 15.3 H (11.7-14.6) % Temp Pulse Resp BP Pulse Ox 98.2 F 94 H 20 139/72 98 12/31/20 16:49 12/31/20 19:07 12/31/20 16:49 12/31/20 19:07 12/31/20 16:49 Laboratory Results WBC 9.39 10^3/uL (4.4-10.8) 12/31/20 11:15 RBC 3.97 10^6/uL (3.93-5.22) 12/31/20 11:15 Hgb 10.4 g/dL (11.2-15.7) L 12/31/20 11:15 Hct 32.2 % (36.0-46.0) L 12/31/20 11:15 MCV 81.1 fL (80-95) 12/31/20 11:15 MCH 26.2 pg (27.0-33.0) L 12/31/20 11:15 MCHC 32.3 % (32.0-36.0) 12/31/20 11:15 RDW 15.3 % (11.7-14.6) H 12/31/20 11:15 Plt Count 234 10^3/uL (130-400) 12/31/20 11:15 MPV 10.8 fL (8.0-11.0) 12/31/20 11:15 Patient ABO/Rh O Positive 12/31/20 11:15 Antibody Screen Negative 12/31/20 11:15 Vital Signs Reviewed: Yes Subjective Interval history since last seen: SROM for clear fluid in large amount at 1931.KH Results Hemoglobin/Hematocrit: Hgb 10.4 g/dL (11.2-15.7) L 12/31/20 11:15 Hct 32.2 % (36.0-46.0) L 12/31/20 11:15 Abnormal Lab Findings: Abnormal Labs 12/31/20 11:15 Hgb 10.4 L Hct 32.2 L MCH 26.2 L RDW 15.3 H
--- NOTE | 2020-12-31 21:15 | W.PM.OBNL1 ---
Date of service: 12/31/20 Time of Service: 21:15 Informed Consent Informed Consent: Induction of Labor Fetus A Monitor: Doppler Heart Rate Baseline: 145 Objective Abnormal lab results 12/31/20 Range/Units 11:15 Hgb 10.4 L (11.2-15.7) g/dL Hct 32.2 L (36.0-46.0) % MCH 26.2 L (27.0-33.0) pg RDW 15.3 H (11.7-14.6) % Temp Pulse Resp BP Pulse Ox 98.1 F 97 H 18 136/83 98 12/31/20 20:32 12/31/20 20:32 12/31/20 20:32 12/31/20 20:32 12/31/20 16:49 Laboratory Results WBC 9.39 10^3/uL (4.4-10.8) 12/31/20 11:15 RBC 3.97 10^6/uL (3.93-5.22) 12/31/20 11:15 Hgb 10.4 g/dL (11.2-15.7) L 12/31/20 11:15 Hct 32.2 % (36.0-46.0) L 12/31/20 11:15 MCV 81.1 fL (80-95) 12/31/20 11:15 MCH 26.2 pg (27.0-33.0) L 12/31/20 11:15 MCHC 32.3 % (32.0-36.0) 12/31/20 11:15 RDW 15.3 % (11.7-14.6) H 12/31/20 11:15 Plt Count 234 10^3/uL (130-400) 12/31/20 11:15 MPV 10.8 fL (8.0-11.0) 12/31/20 11:15 Patient ABO/Rh O Positive 12/31/20 11:15 Antibody Screen Negative 12/31/20 11:15 Vital Signs Reviewed: Yes Subjective Interval history since last seen: Contractions frequency and intensity has increased since SROM. Is on birthing ball and breathing through contractions. Denies interest in epidural and now states she believes she will try nitrous instead. Orders placed as needed. is present and supportive.KH Interventions Pain Management (Nitrous ordered for prn use.) Interventions: Coping Well, No Interventions needed . Results Hemoglobin/Hematocrit: Hgb 10.4 g/dL (11.2-15.7) L 12/31/20 11:15 Hct 32.2 % (36.0-46.0) L 12/31/20 11:15 Abnormal Lab Findings: Abnormal Labs 12/31/20 11:15 Hgb 10.4 L Hct 32.2 L MCH 26.2 L RDW 15.3 H
--- NOTE | 2020-12-31 21:55 | W.PM.OBNL1 ---
Date of service: 12/31/20 Time of Service: 21:55 Informed Consent Informed Consent: Induction of Labor Objective Abnormal lab results 12/31/20 Range/Units 11:15 Hgb 10.4 L (11.2-15.7) g/dL Hct 32.2 L (36.0-46.0) % MCH 26.2 L (27.0-33.0) pg RDW 15.3 H (11.7-14.6) % Temp Pulse Resp BP Pulse Ox 98.1 F 98 H 18 132/68 98 12/31/20 21:30 12/31/20 21:30 12/31/20 20:32 12/31/20 21:30 12/31/20 16:49 Laboratory Results WBC 9.39 10^3/uL (4.4-10.8) 12/31/20 11:15 RBC 3.97 10^6/uL (3.93-5.22) 12/31/20 11:15 Hgb 10.4 g/dL (11.2-15.7) L 12/31/20 11:15 Hct 32.2 % (36.0-46.0) L 12/31/20 11:15 MCV 81.1 fL (80-95) 12/31/20 11:15 MCH 26.2 pg (27.0-33.0) L 12/31/20 11:15 MCHC 32.3 % (32.0-36.0) 12/31/20 11:15 RDW 15.3 % (11.7-14.6) H 12/31/20 11:15 Plt Count 234 10^3/uL (130-400) 12/31/20 11:15 MPV 10.8 fL (8.0-11.0) 12/31/20 11:15 Patient ABO/Rh O Positive 12/31/20 11:15 Antibody Screen Negative 12/31/20 11:15 Subjective Interval history since last seen: requesting epidural, feels that nirtous is not giving adequate relief. Denies urge to push. 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
[2020-12-31 22:06] LABS: COVID-19 RT-PCR UVMMC Result Negative (Negative)
[2020-12-31] MEDS: FentaNYL/ROPIvacaine 2 mcg/ml and 0.1% 200 ML CADD Cassette EP (22:50)
[2021-01-01] VITALS (18 sets, daily range): BP systolic 108–150; BP diastolic 57–82; PULSE 89–139; RESP 18; TEMP 36.7–37.2; O2SAT 98–99
--- NOTE | 2021-01-01 00:52 | PGE_ITS ---
Date of service: 01/01/21 Time of Service: 00:53 Informed Consent Informed Consent: Induction of Labor Pelvic Exam Dilation: 10 Effacement (%): 100 station: 0 Position: ROP Cervix Position: mid Consistency: soft Vaginal Exam Presentation: Cephalic Fetus A Monitor: External (US) Heart Rate Baseline: 133 Presentation: Vertex Variability: Moderate (6-25 BPM) Categories: Category I Accelerations: 10 X 10 Decelerations: Variable (occasional variable not repetitive) Recurrence: Intermittent Assessment and Plan Assessment and plan (1) Encounter for induction of labor: Status: Acute Objective Abnormal lab results 12/31/20 Range/Units 11:15 Hgb 10.4 L (11.2-15.7) g/dL Hct 32.2 L (36.0-46.0) % MCH 26.2 L (27.0-33.0) pg RDW 15.3 H (11.7-14.6) % Temp Pulse Resp BP Pulse Ox 98.1 F 119 H 18 108/57 L 99 12/31/20 21:30 01/01/21 00:35 12/31/20 20:32 01/01/21 00:18 01/01/21 00:32 Laboratory Results WBC 9.39 10^3/uL (4.4-10.8) 12/31/20 11:15 RBC 3.97 10^6/uL (3.93-5.22) 12/31/20 11:15 Hgb 10.4 g/dL (11.2-15.7) L 12/31/20 11:15 Hct 32.2 % (36.0-46.0) L 12/31/20 11:15 MCV 81.1 fL (80-95) 12/31/20 11:15 MCH 26.2 pg (27.0-33.0) L 12/31/20 11:15 MCHC 32.3 % (32.0-36.0) 12/31/20 11:15 RDW 15.3 % (11.7-14.6) H 12/31/20 11:15 Plt Count 234 10^3/uL (130-400) 12/31/20 11:15 MPV 10.8 fL (8.0-11.0) 12/31/20 11:15 SARS-CoV-2 (PCR) Negative (Negative) 12/31/20 10:50 Clarice COVID-19 PCR Not Applicable 12/31/20 10:50 Ref Test Perform Site [facility] lab 12/31/20 10:50 Patient ABO/Rh O Positive 12/31/20 11:15 Antibody Screen Negative 12/31/20 11:15 Vital Signs Reviewed: Yes Notable Details: BP 108/57 MHR 105 Subjective Interval history since last seen: called to room at 0035 with concern for FHR deceleration. FHR 135-140 with acceleration noted and moderate variability. Tracing is broken as we relocate FHR. VE 10/100/-1 to 0 station. Attempt to have patient push is not successful due to heavy epidural and contractions that are not strong.KH Interventions Other (IV bolus and repositioned.Will augment with pitocin to increase contraction strength.KH) Results Hemoglobin/Hematocrit: Hgb 10.4 g/dL (11.2-15.7) L 12/31/20 11:15 Hct 32.2 % (36.0-46.0) L 12/31/20 11:15 Abnormal Lab Findings: Abnormal Labs 12/31/20 11:15 Hgb 10.4 L Hct 32.2 L MCH 26.2 L RDW 15.3 H
[2021-01-01] MEDS: Oxytocin/Normal Saline 30 UNIT/500 ML BAG 2 UNITS IV (01:24)
--- NOTE | 2021-01-01 02:21 | W.OBDELIVERY ---
Date of service: 01/01/21 Time of Service: 02:22 OB Labor/ Delivery Information Baby A Delivery Delivery Method: Spontaneaous Presentation: Cephalic Cephalic Position: Vertex Vertex Position: Left Occipital Anterior Cord Description-Baby A: 3 Vessels and Nuchal Cord (loose X 1, reduced over shoulders at delivery.KH) Amniotic Fluid: Clear Estimated Blood Loss: 150ml Delivery Outcome: Liveborn Infant Transferred: Remains with Mother Providers Nurse Ice Guard Skating Rink: Kirstin Miller Labor/Delivery Information Number of Babies in Womb: 1 Steroids Given: None Reason Steroids Not Administered: N/A Group Beta Strep: Negative Antibiotics Administered: No Rubella Status: Immune Blood Type: O+ Varicella Immunity: Immune Born En Route: No Maternal Complications: None Shoulder Dystocia: No Note: Live male delivers over intact perineum with excellent pushing effort by Mother. Nuchal cord noted and was reduced over baby's shoulders as he delivers quickly. Baby placed on Mother's abdomen for skin to skin. Once cord pulsations stop, cord is clamped times 2 and cut by FOB. Positive family bonding noted. Spontaneous cry immediately with . score 8 at 1 minute and 9 at 5 minutes. Placenta delivers spontaneously in less than 10 minutes via ramesh mechanism, intact. Fundus firm at U with massage. EBL 150 ml. Perineum and vagina inspected, no lacerations, intact. Mother plans to breastfeed, desires circumcision for her child and is planning IUD at 6 weeks PP for contraception. Mother and baby are in satisfactory condition.KH Stages of Labor Complete Dilatation Date: 01/01/21 Complete Dilatation Time: 00:35 ROM Baby A: 12/31/20 ROM Baby A: 19:30 Placenta Cultured: No Placenta Status: Delivered Baby A Gender: Male Gestational Status: Term (39-41.6 wks)
[2021-01-01] MEDS: Ibuprofen 600 MG TAB PO (11:36)
[2021-01-01] MEDS: Acetaminophen 325 MG TAB 650 MG PO (11:36)
[2021-01-02 00:04] VITALS: BP 127/78; PULSE 101; RESP 18; TEMP 36.5
[2021-01-02 08:27] VITALS: BP 117/68; PULSE 90; RESP 16; TEMP 37
--- NOTE | 2021-01-02 11:38 | DSE_ITS ---
Date of service: 01/02/21 Time of Service: 11:39 DS: Diagnosis Discharge Diagnosis (1) Encounter for induction of labor: Status: Acute Asessment and Plan: Caring for baby independently. Pain is managed well with oral analgesics. Voiding without difficulty. well. Perineum intact. History of difficulty due to low weight gain. A - stable mother and baby , Post day 2, slight nipple soreness. P - Discharge to home . Routine post instructions. [facility] Follow up with computing consultant if necessary. Mirena IUD planned Discharge Plan Discharge Details Reason For Visit: induction Admit Date/Time: 12/31/20 09:51 Admit Provider: Kirstin Miller Attending Provider: Kirstin Miller Primary Care Provider: Starr Mercado Home Meds and New Rx's Prescriptions: No Action prenat.vits,mercedes,[id number] Tablet 1 tab PO DAILY RF: 0 aspirin 81 mg tablet,delayed release (DR/EC) 120 mg PO DAILY Qty: 90 RF: 2 PROVENTIL 17 GM aerosol 2 puff Inhalation PRN RF: 0 Discharge Instructions Stand Alone Forms: BC Instructions, BC Post Vaginal Deliver Activity:: Activity as Tolerated Activity:: Activity as Tolerated Equipment/Supplies:: No Equipment Needed Diet:: As Tolerated OB:DS Summary Summary Vaginal Delivery Method: Spontaneaous Episiotomy Description: None Laceration Description: None Laceration Extension: N/A Contraception Discussed Contraception Discussed: Yes Contraceptive Plan: IUD, [place] Infant Gender-Baby A: Male weight: 7 lb 4.051 oz Status at Discharge Functional status at discharge: independent ambulation Overall status at discharge: patient is back to baseline Mental Status: mental status grossly normal Speech and Movement: speech and movement normal Mood: congruent mood Affect: normal affect Exam Physical Exam Vital signs: Temp Pulse Resp BP Pulse Ox 98.6 F 90 16 117/68 99 01/02/21 08:27 01/02/21 08:27 01/02/21 08:27 01/02/21 08:27 01/01/21 16:11 Constitutional Constitutional: no acute distress Respiratory Exam Respiratory Exam: Normal Cardiovascular Exam Cardiovascular Exam: Normal Fundal Exam Fundus: Below Umbilicus Rectal Exam Rectal Exam: Normal Exam Patient deferred: external exam Extremities Exam Extremity Exam: Normal Skin Exam Skin Exam: Normal Psychiatric Exam Psychiatric Exam: Normal PFSH Family History (Updated 06/12/20 @ 14:32 by Kirstin Gale CNM) Mother Diabetes Social History (Updated 06/12/20 @ 16:25 by Kirstin Gale CNM) Smoking/Tobacco Use Status: Never Smoking risk assessment performed?: Yes Alcohol Intake: never Details: denoes alcohol use Substance use type: does not use Current gender identity: female History History 4 Para 3 Hx # Term Pregnancies 3 Multiple births 0 Hx # Pregnancies 0 Ectopic pregnancies 0 AB induced 0 Hx Number of Living Children 3 AB spontaneous 0 Past Pregnancies Del. Date GA/Weeks # Outcome Route Wgt Sex Labor Lgth Anesthes ia Location Prov Complic 05/22/06 40 No Successful vaginal 6 lb 13 oz Male [facility], 03/29/09 39 No Successful vaginal 7 lb 13 oz Male [address] [place] [address] 12/28/12 40 No Successful vaginal 6 lb 4 oz Female 5-6 [facility] Enoc Delivery Date: 05/22/06 vacuum, nuchal cord, long second stage, resuscitation, healthy, Uriah Kirstin Gale Delivery Date: 03/29/09 June , IOL for nearterm Kirstin Gale Delivery Date: 12/28/12 IOL, post dates, Kirstin Torres DS: Data Vitals/I&O Vitals and I&O: Vital Signs Temperature 98.6 F 01/02/21 08:27 Pulse 90 01/02/21 08:27 Pulse Rhythm Regular 01/02/21 08:27 Respiratory Rate 16 01/02/21 08:27 Blood Pressure 117/68 01/02/21 08:27 Blood Pressure Mean 84 01/02/21 08:27 Pulse Oximetry 99 01/01/21 16:11 Oxygen Delivery Method Room Air 12/31/20 10:38 Oxygen Flow Rate 0 12/31/20 10:38 Pain Level 0 01/01/21 12:36 Intake & Output 01/01/21 01/01/21 01/02/21 11:59 23:59 11:59 Intake Total 1000 / 1000 550 / 550 Output Total 2200 / 2200 Balance -1200 / -1200 550 / 550 Intake: Oral 1000 / 1000 550 / 550 Output: Urine 2200 / 2200 Other: Urine Color Yellow Yellow
[2021-01-02 19:02] VITALS: BP 109/62; PULSE 76
== END 2021-01-02 15:05 | disposition home or self-care (01) | DRG 807 ==
PROVIDERS: Admitting Provider Advanced Practice Midwife; PCP Family Medicine; Visit Provider Advanced Practice Midwife
DX: O40.3XX0 Polyhydramnios, third trimester, not applicable or unspecified (principal); Z37.0 Single live birth; O13.4 Gestational [pregnancy-induced] hypertension without significant proteinuria, complicating childbirth; O69.81X0 Labor and delivery complicated by cord around neck, without compression, not applicable or unspecified; Z3A.40 40 weeks gestation of pregnancy; Z20.828 Contact with and (suspected) exposure to other viral communicable diseases
CPT/HCPCS: 36415; 85027; 86850; 86900; 86901; U0003; J3490

== ENCOUNTER 2021-02-12 12:36 | Outpatient (REF) | payer MEDICAID, SELFPAY ==
--- NOTE | 2021-02-12 11:30 | PAPFT_PTH ---
PATIENT: RADHA ALICIA LOC: [facility] U#:[id number] AGE/SX: 35/F ROOM: RE02/12/[address]: Nayla Tovar CNM : 1985 BED: DIS: 02/12/2021 SPEC #: [id number] RECD: 02/12/21 17:30 STATUS: PUNEET REJose Eduardo #: [id number] ASHWIN: 02/12/21 11:[address]: Nayla Tovar DEPT: [facility] Cytology RECD BY: Anjali Plummer ENTERED: 02/12/21 17:30 SP TYPE: PAPFT OTHR DR: Starr Mercado Tissues: 1 - CX/ENDOCX FOR PAP SMEARS Procedures: PAP THIN PREP/[facility] Screening HPV DNA PROBE Comments: [id number]
[2021-02-18 14:55] LABS: Chlamydia Result Negative (Negative); GC Result Negative (Negative)
== END 2021-02-12 12:37 | disposition home or self-care (01) ==
LOC: LBN 12:36
PROVIDERS: PCP Family Medicine; Visit Provider Advanced Practice Midwife
DX: Z11.3 Encounter for screening for infections with a predominantly sexual mode of transmission (principal); Z12.4 Encounter for screening for malignant neoplasm of cervix; Z11.51 Encounter for screening for human papillomavirus (HPV)
CPT/HCPCS: 87491; 87591; 88142; 87624